=== PATIENT | female | born 1990 | race Caucasian/White ===

== ENCOUNTER 2025-03-10 11:06 | Emergency (ER) | payer BC, SELFPAY ==
[2025-03-10 11:10] VITALS: BP 138/83
[2025-03-10 11:27] VITALS: BMI 29.6
--- NOTE | 2025-03-10 11:40 | EDRN ---
Shelton DRAKE in room w/ pt.
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
--- NOTE | 2025-03-10 11:50 | EDRN ---
Pt was seen and discharged solely by Shelton DRAKE.
== END 2025-03-10 11:50 | disposition home or self-care (01) ==
LOC: EMR 11:06
PROVIDERS: EMERGENCY PHYSICIAN Emergency Medicine
DX: R42 Dizziness and giddiness (principal); M54.16 Radiculopathy, lumbar region; F41.9 Anxiety disorder, unspecified; F32.A Depression, unspecified; M41.9 Scoliosis, unspecified; F17.200 Nicotine dependence, unspecified, uncomplicated; Z91.048 Other nonmedicinal substance allergy status
CPT/HCPCS: 99283

== ENCOUNTER 2025-05-14 11:38 | Emergency (ER) | payer BC, SELFPAY ==
[2025-05-14 11:40] VITALS: BP 128/83
[2025-05-14 12:03] LABS: Hematocrit 41.7 % (37.0-47.0); Hemoglobin 14.1 g/dL (12.0-16.0); Mean Corp Hgb Conc. 33.8 g/dL (33.0-37.0); Mean Corpuscular Volume 93.5 fL (81.0-99.0); Nucleated Red Blood Cells % 0 %; Platelet Count 322 10^3/uL (130-400); Red Cell Dist. Width 12.3 % (11.5-14.5)
[2025-05-14 12:19] LABS: ALT (SGPT) 23 U/L (0-35); AST (SGOT) 23 U/L (14-36); Albumin 4.4 g/dl (3.5-5.0); Alkaline Phosphatase 94 U/L (38-126); Blood Urea Nitrogen 14 mg/dl (7-17); Calcium 9.7 mg/dl (8.4-10.2); Carbon Dioxide 25 mmol/L (22-30); Chloride 107 mmol/L (98-107); Glucose 93 mg/dl (70-99); Potassium 4.4 mmol/L (3.5-5.1); Sodium 137 mmol/L (135-145); Total Protein 6.9 g/dl (6.3-8.2); eGFR > 60.00
[2025-05-14 12:26] LABS: Troponin I < 0.012 ng/ml
--- NOTE | 2025-05-14 15:23 | ED.GENMED ---
History of Present Illness
General
Chief Complaint: Dizziness
Source: patient
Exam Limitations: none
Time Seen by Provider: 05/14/25 15:07
Nursing documentation reviewed up to this point in time: agreed with
History of Present Illness
History of Present Illness:
Patient to ED with report of sudden onset of loss of peripheral vision bilaterally, wavy central vsion, dizziness. Symptoms started suddenly while working on computer. No pain, n/v. Symptoms resolved within a few minutes. SHe was seen at an
referred to ED. SHe is now symptom free. History of vertigo, tinnitus.
Past History
Past History
ED Past Medical History: Psychiatric (Anxiety, depression) and Other (Scoliosis, Anxiety); Negative Asthma or NIDDM
ED Past Surgical History: None
Social History
Tobacco: Smoker
Alcohol: Occasional
Drug: Marijuana
Personal: Single
Living: with roommate
Employment: Employed
Family History
Family History: Cancer (Mother of breast cancer)
Review of Systems
Review of Systems
Allergies reviewed?: Yes
All Other Systems: ROS reviewed and negative except as documented in HPI and ROS
Constitutional: Reports no symptoms
EENT: Reports other (momentary loss of peripheral vision, wavy central vision)
Respiratory: Reports no symptoms
Cardiac: Reports no symptoms
ABD/GI: Reports no symptoms
: Reports no symptoms
Musculoskeletal: Reports no symptoms
Skin: Reports no symptoms
Neurological: Reports dizzy
Psychiatric: Reports no symptoms
Phy Exam
General Physical Exam
General Presentation: well appearing and no apparent distress
General age: appears stated age
General Skin: warm and dry
General Habitus: normal
General Mental: alert
ENT Exam
ENT Exam: EOMI, TM's normal and neck supple
Eye Exam
Eye Exam: PERRL, EOMI, conjunctiva normal, disc sharp and globe normal
Cardiovascular Exam
Cardiovascular Exam: regular rate/rhythm and no edema
Pulmonary Exam
Pulmonary Exam: lungs clear and no respiratory distress
Neurological Exam
Neurological Exam: alert, oriented x3, CN II-XII intact, no motor deficits, no sensory deficits, speech normal and normal gait
Edie Coma Scale
Eye Opening: Spontaneous
Verbal Response: Oriented
Motor Response: Obeys Commands
GCS Total Score: 15
Mental
Mental Status: oriented to person, oriented to place, oriented to time and usual mental status
Cranial
Cranial Nerves: normal
EOM (CN3/4/6): intact and other (no nystagmus)
Motor
Seizure Activity: none
Gait: normal
Tremors: none
Right upper extremity: 4
Right lower extremity: 4
Left upper extremity: 4
Left lower extremity: 4
Bilateral upper extremities: 4
Bilateral lower extremities: 4
Sensory
Sensory Exam: intact
Cerebellar
Cerebellar Function: normal finger to nose, normal heel to bang and normal Romberg test
Reflexes
Reflexes: +3: Left patellar and +3: Right patellar
Musculoskeletal Exam
Musculoskeletal Exam: full ROM and neuro vasc intact
Skin Exam
Skin Exam: normal color, warm/dry and no rash
Psychiatric Exam
Psychiatric Exam: normal mood/affect
Course
Orders/Labs/Results
Orders:
Orders
05/14/25 11:43
Electrocardiogram (*1) Urgent
Reason for Study: Vertigo / Dizzy
CT Head W/o Iv Contrast Urgent
Comment:
Reason For Exam: dizziness
05/14/25 11:44
EKG- Treatment ONCE
05/14/25 11:52
Complete Blood Count/With Diff Urgent
Comprehensive Metabolic Panel Urgent
HCG, Serum Qualitative Screen Urgent
Comment: ADDON
Lyme Progressive Urgent
Comment: ADD ON
Troponin I Urgent
05/14/25 15:21
Add On- LAB Urgent
Tests Added?: lyme titer
05/14/25 15:22
Add On- LAB Urgent
Tests Added?: serum HCG qualitative
05/14/25 15:28
Urinalysis Reflex To Culture Urgent
Date Specimen was Collected: 05/14/25
Time Specimen was Collected: 15:24
Urine Microscopic Reflex Cult Urgent
Urine Culture Urgent
[place] Source: U
Specimen Description:
Date Specimen was Collected: 05/14/25
Time Specimen was Collected: 15:24
Abnormal Lab Results
05/14/25 05/14/25
11:52 15:28
WBC 14.7 H 10^3/uL
(4.8-10.8)
MCH 31.6 H pg
(27.0-31.0)
Abs Immat Gran (auto) 0.1 H 10^3/uL
(0-0.05)
Absolute Neuts (auto) 11.9 H 10^3/uL
(1.4-6.5)
Absolute Monos (auto) 0.9 H 10^3/uL
(0.1-0.6)
Neutrophils % 80.6 H %
(42.2-75.2)
Lymphocytes % 11.2 L %
(20.5-51.1)
Creatinine 0.5 L mg/dL
(0.6-1.0)
Ur Occult Blood Reflex 1+ A
(Negative)
Urine Bacteria (Reflex) Moderate A
(Negative)
05/14/25 11:52
05/14/25 11:52
Vital Signs
Initial and Last Documented VS:
Initial Vital Signs
Temp Pulse Resp BP Pulse Ox
98.2 F 81 20 128/83 98
05/14/25 11:40 05/14/25 11:40 05/14/25 11:40 05/14/25 11:40 05/14/25 11:40
Last Documented Vital Signs
Temp Pulse Resp BP Pulse Ox
98.2 F 74 16 113/52 100
05/14/25 11:40 05/14/25 17:00 05/14/25 17:00 05/14/25 17:00 05/14/25 17:00
*Radiology
Radiology exam reviewed: radiology read reviewed
*Pulse Oximetry
SaO2: 98
Oxygen Mode of Delivery: Room air
Patient hypoxic: no
*Critical Care Note
Total Time (30-74mins, 75-104mins- exclusive of procedures): Not Applicable
Update Note
Update Note:
Patient to ED with complaint of momentary loss of peripheral vision, wavy central vision and dizziness. VSS, she remains afebrile. Neuro exam unremarkable. Head CT neg for acute findings. Labs, EKG reviewed, no findings to explain her symptoms.
WIll discharged home as she has remained asymptomatic, follow up with neurology and opthalmalogy. Given intstructions on s/s to return to ED and she is agreeable to plan.
ED Attending Note
-
Portions of this chart may have been created with voice recognition software.� Occasional wrong word or��sound alike� substitutions may have occurred due to the inherent limitations of voice recognition software.
Discharge Plan
Departure
Patient Disposition: Home (Routine Discharge)
Date of Disposition: 05/14/25
Time of Disposition: 17:10
Patient with high blood pressure during this ER visit?: No
Condition: Good
Covid-19: Not Applicable
Discharge Problem:
Changes in vision
Instructions: Dizziness, Nonvertigo, (DC)
Prescriptions:
No Action
amoxicillin 875 MG tablet
875 mg PO
Patient Comments:
started abx on 08/28/11
cyclobenzaprine 10 MG tablet
10 mg PO TIDPRN PRN (Reason: pain) Qty: 13 0RF
prednisone 50 MG tablet
50 mg PO DAILY Qty: 5 0RF
methylprednisolone [Medrol (Micah)] 4 mg tablets,dose pack
See Rx Instructions .ROUTE .COMPLEX Qty: 21 0RF
Rx Instructions:
orally per package directions
Referrals:
Geena Stanley MD [Active, Neurology] - Call in 1-3 days for appt
Patricia Hill MD [Active, Ophthalmology] - Call in 1-3 days for appt
NONE,* [Family Provider, Internal Medicine]
Activity Restrictions/Additional Instructions:
Return to the emergency department immediately for any changes in/worsening of your symptoms.
Interventions
Interventions:
*Risk Screen - Suicide Last Done: 05/14/25 15:36
*General Assessment Last Done: 05/14/25 11:40
*Neglect/Abuse Screening Last Done: 05/14/25 15:36
*ED- Fall Risk Assessment Last Done: 05/14/25 15:36
*Nursing Disposition Last Done: 05/14/25 17:16
ED- Neurological Assessment Last Done: 05/14/25 15:36
ED Swallowing Screen Last Done: 05/14/25 15:36
Discharge Date and Time
Discharge Date/Time: 05/14/25 17:21
Print Language: SERBIAN
[2025-05-14 15:53] LABS: Urine Character Clear (Clear)
[2025-05-14 16:16] LABS: Urine Red Blood Cell 0-2 /HPF (0-2); Urine White Cell 0-2 /HPF (0-5)
[2025-05-14 17:00] VITALS: BP 113/52
[2025-05-14 17:12] LABS: HCG, Serum Qualitative Screen Negative
[2025-05-17 13:02] LABS: Lyme Antibody Screen, EIA Negative (Negative)
== END 2025-05-14 17:21 | disposition home or self-care (01) ==
LOC: EMR 11:38
PROVIDERS: Emergency Medicine; Nurse Practitioner; EMERGENCY PHYSICIAN Emergency Medicine
DX: R42 Dizziness and giddiness (principal); F17.200 Nicotine dependence, unspecified, uncomplicated; Z80.3 Family history of malignant neoplasm of breast
CPT/HCPCS: 99284; 70450; 80053; 81003; 81015; 84484; 84703; 85025; 86618; 87086; 93005